=== PATIENT | female | born 1950 | race Caucasian/White ===

== ENCOUNTER 2022-10-22 12:05 | Emergency (ER) | payer MEDICARE, OTHER, SELFPAY ==
[2022-10-22 12:11] VITALS: BP 203/91; PULSE 69; RESP 16; TEMP 36.8; O2SAT 99; BMI 27.7
--- NOTE | 2022-10-22 12:19 | DI.US.S_ITS ---
PROCEDURE: US PERIPH VENOUS LOW EXTREM LT INDICATIONS: SWELLING AND PAIN TECHNIQUE: Real-time imaging, as well as color and pulse Doppler interrogation, were performed of the lower extremity deep veins from the inguinal ligament to the popliteal fossa. COMPARISON: None. FINDINGS: The common femoral, femoral and popliteal veins are normally compressible, and free of intraluminal thrombus. Color and pulse Doppler demonstrate normal phasic intraluminal flow. There is normal augmentation response to distal compression maneuver. IMPRESSION: No evidence of DVT in visualized left lower extremity veins. Dictated by: Billy Meyers M.D. on 10/22/2022 at 11:59 Approved by: Billy Meyers M.D. on 10/22/2022 at 11:59
[2022-10-22 13:40] VITALS: BP 212/91; PULSE 68; O2SAT 99
[2022-10-22 13:47] VITALS: BP 191/82
--- NOTE | 2022-10-22 14:11 | ED_ITS ---
HPI - Extremity Problem <REYES Zuñiga - Last Filed: 10/22/22 14:17> General Chief complaint: Extremity Problem,Nontraumatic Stated complaint: blood clot lt leg/pain lt leg calf/swollen leg Time Seen by Provider: 10/22/22 13:57 Source: patient Mode of arrival: Ambulatory History of Present Illness HPI Narrative: This is a 72-year-old female with no significant if can not medical history who presents to the emergency department complaining of pain behind her left knee with a known Soto cyst and states that she now has swelling to her lower leg and this is caused her pain and discomfort. She states that she is quite active, has hypertension, denies any history of blood clots, pulmonary embolus, or heart attacks. She denies shortness of breath, weakness, sensation changes, denies any recent injury or long bone fracture. She states that she was at her PT who recommended that she have evaluation for the swelling in her lower leg and she was concerned about blood cell behind her knee since the Soto cyst was quite large at the time. Related Data Allergies Allergy/AdvReac Type Severity Reaction Status Date / Time cephalexin [From Keflex] Allergy Rash Verified 10/22/22 12:11 Review of Systems <REYES Zuñiga - Last Filed: 10/22/22 14:17> Review of Systems ROS Unobtainable: All systems reviewed & are unremarkable except as noted in HPI and below Patient History <REYES Zuñiga - Last Filed: 10/22/22 14:17> Social History Smoking Status: Never smoker Smoking Status: Never smoker Substance Use Type: does not use Exam <REYES Zuñiga - Last Filed: 10/22/22 14:17> Narrative Exam Narrative: Reviewed vitals signs and nursing notes. General: Pleasant, sitting upright, in no acute distress, well groomed, afebrile HEENT: symmetrical facial expressions, moist mucous membranes, neck is supple CV: regular rate and rhythm, warm extremities, left lower extremity has 1+ edema, mildly circumferential around her ankle but does not extend up, is not pitting, there is no discoloration, wound, no erythema to the posterior knee, full range of motion of her knee without deficit. MSK: moves all extremities, no weakness, normal tone, ambulatory without deficit Skin: brisk capillary refill, without rash or wound Neuro: clear speech and normal cognition, A&O x3, GCS 15, no focal motor or sensation deficits Initial Vital Signs Initial Vital Signs: Vital Signs Temperature 98.2 F 10/22/22 12:11 Pulse Rate 69 10/22/22 12:11 Respiratory Rate 16 10/22/22 12:11 Blood Pressure 203/91 H 10/22/22 12:11 Pulse Oximetry 99 10/22/22 12:11 Oxygen Delivery Method Room Air 10/22/22 12:11 <Ravi Patel DO - Last Filed: 10/22/22 14:18> Initial Vital Signs Initial Vital Signs: Vital Signs Temperature 98.2 F 10/22/22 12:11 Pulse Rate 69 10/22/22 12:11 Respiratory Rate 16 10/22/22 12:11 Blood Pressure 203/91 H 10/22/22 12:11 Pulse Oximetry 99 10/22/22 12:11 Oxygen Delivery Method Room Air 10/22/22 12:11 Course <REYES Zuñiga - Last Filed: 10/22/22 14:17> Orders Ordered: ED Orders 10/22/22 12:19 US periph venous low extrem lt Stat Vital Signs Vital signs: Vital Signs - 8 hr 10/22/22 12:11 10/22/22 13:40 10/22/22 13:47 Temperature 98.2 F Pulse Rate 69 68 Respiratory Rate 16 Blood Pressure 203/91 H Blood Pressure [Left Arm] 212/91 H 191/82 H Pulse Oximetry 99 99 Oxygen Delivery Method Room Air Room Air <Ravi Patel DO - Last Filed: 10/22/22 14:18> Orders Ordered: ED Orders 10/22/22 12:19 US periph venous low extrem lt Stat Vital Signs Vital signs: Vital Signs - 8 hr 10/22/22 12:11 10/22/22 13:40 10/22/22 13:47 Temperature 98.2 F Pulse Rate 69 68 Respiratory Rate 16 Blood Pressure 203/91 H Blood Pressure [Left Arm] 212/91 H 191/82 H Pulse Oximetry 99 99 Oxygen Delivery Method Room Air Room Air MDM - Extremity (Nontraumatic) <REYES Zuñiga - Last Filed: 10/22/22 14:17> Imaging Data US - DVT: Radiologist's Impression: PROCEDURE:? US PERIPH VENOUS LOW EXTREM LT ? INDICATIONS:? SWELLING AND PAIN ? TECHNIQUE:? Real-time imaging, as well as color and pulse Doppler interrogation, were performed of the lower extremity deep veins from the inguinal ligament to the popliteal fossa.? ? COMPARISON:? None. ? FINDINGS:? The common femoral, femoral and popliteal veins are normally compressible, and free of intraluminal thrombus.? Color and pulse Doppler demonstrate normal phasic intraluminal flow.? There is normal augmentation response to distal compression maneuver. ? ? IMPRESSION:? No evidence of DVT in visualized left lower extremity veins. ? ? Dictated by: Billy Meyers M.D. on 10/22/2022 at 11:59 ? ? Approved by: Billy Meyers M.D. on 10/22/2022 at 11:59 ? MDM Narrative Medical decision making narrative: Chief Complaint: Swelling to her left lower leg Independent historian: Patient Multiple etiologies for patient's symptoms considered including, but not limited to: Muscle strain/sprain, lymphedema, venous insufficiency, Soto cyst, celluli tis, knee abnormalities/effusion, gastrocnemius injury I have independently reviewed the patient's vital signs and nursing notes as well as prior records if available. My interpretation of imaging: Lower extremity venous Ultrasound for DVT is negative for DVT in left lower extremity Course of care: Venous Dopplers negative for DVT, she does not have evidence of infection, there is no erythema or wound to the posterior knee or lower extremity. Discussed compression stockings, walking, elevation, and topical pain medication like Voltaren gel and lidocaine cream. Encouraged to follow-up with her primary care provider and physical therapy when she is able. She understands return to the emergency department for new or worsening symptoms. Social considerations that may affect disposition: none Questions are addressed and there is agreement with the plan and for follow-up. I consulted with the ED attending physician * as needed for higher level of care considerations and they were available for discussion and recommendations regarding plan of care and diagnostic testing. Patient is appropriate for outpatient management. Discharge Plan Departure Patient Disposition: Home Clinical Impression: Soto's cyst, ruptured, Encounter for assessment for deep vein thrombosis (DVT) Instructions: Soto Cyst, How to Use an Elastic Bandage -- Edema Activity Restrictions/Additional Instructions: *You have been diagnosed with a ruptured Soto cyst which can be quite tender. Please use Voltaren gel or other topical medication for pain control, Tylenol and or compression stockings for your lower leg. I think balance and walking is all fine, try to avoid having your leg and a bended position or dependent for a long period of time. Elevate frequently. *What to do: *Please continue to take your regular medications as directed. [ ] New medication prescriptions sent to your pharmacy: [ ] [ ] New medication written as a paper prescription [ x] No new medications given *Please call and schedule follow up with your primary care provider in 2-3 days, at least for an update. Let them know you were seen in the Emergency Department for the above problem. We will electronically transmit a record of today's note if your PCP or specialist is in our system. *If you do not have a primary care provider please contact [phone] to establish care with one of the [facility] primary care providers. *Return to the Emergency Department for worsening symptoms, inability to keep liquids down, fever greater than 101F, chills, or other concerning symptom. Referrals: Gale Lubin MD [Primary Care Provider] - Stand Alone Forms: Patient Portal/API <Ravi Patel DO - Last Filed: 10/22/22 14:18> Cosign ED Attending Coscjature Attestation: Dr Patel Co-Sign Statement: I was available for consultation during this patient's emergency department visit. This chart is signed by myself for administrative purposes only. I did not have direct contact with this patient during this visit. They were seen independently by the APC.
== END 2022-10-22 14:15 | disposition home or self-care (01) ==
PROVIDERS: Emergency Provider Nurse Practitioner Critical Care Medicine; PCP Family Medicine
DX: M66.0 Rupture of popliteal cyst (principal)
CPT/HCPCS: 93971; 99281; 99283